=== PATIENT | male | born 1970 | race Two or more races ===

== ENCOUNTER → 2023-02-04 | Emergency (ER) | payer BC ==
[~2023-02-04] VITALS: Ht 193 cm; Wt 90.7 kg
[2023-02-04 15:49] VITALS: BP 129/88; TEMP 98.8; O2SAT 95
== END | disposition home or self-care (01) ==
LOC: ER 15:54
DX: S00.83XA Contusion of other part of head, initial encounter (principal); F10.129 Alcohol abuse with intoxication, unspecified; J45.909 Unspecified asthma, uncomplicated; Z60.2 Problems related to living alone; W18.30XA Fall on same level, unspecified, initial encounter; Y93.89 Activity, other specified; Y92.89 Other specified places as the place of occurrence of the external cause; Y99.8 Other external cause status; Y90.9 Presence of alcohol in blood, level not specified
CPT/HCPCS: 70450-TC; 72125-TC; 82962-TC